=== PATIENT | female | born 1960 | race Caucasian/White ===

== ENCOUNTER 2023-01-02 14:46 | Emergency (ER) | payer BC, SELFPAY ==
[2023-01-02 14:48] VITALS: BP 155/89; PULSE 100; RESP 16; TEMP 36.7; O2SAT 100; BMI 28.3
--- NOTE | 2023-01-02 15:59 | EKG12_ITS ---
Test Reason : chest pressure Blood Pressure : / mmHG Vent. Rate : 090 BPM Atrial Rate : 090 BPM P-R Int : 162 ms QRS Dur : 084 ms QT Int : 372 ms P-R-T Axes : 056 021 041 degrees QTc Int : 455 ms Normal sinus rhythm Possible Left atrial enlargement Borderline ECG Confirmed by NIK GIBSON, CAITLYN ([id number]), editor department EDMOND MANN ([id number]) on 01/03/2023 10:09:14 AM Referred By: Confirmed By:CAITLYN ZARAGOZA MD
--- NOTE | 2023-01-02 16:10 | RAD_ITS ---
INDICATION: Pressure chest EXAMINATION/TECHNIQUE: X-RAY - XR Chest 1 View COMPARISON: None FINDINGS: LINES/DEVICES: None. LUNGS: No consolidation, edema or effusion. No pneumothorax. Calcified nodularity projects over the right midlung. MEDIASTINUM AND CARDIOVASCULAR STRUCTURES: Cardiac silhouette not enlarged. Central airways and mediastinal contour are unremarkable. BONES AND SOFT TISSUES: Right mastectomy and axillary clips. RAD/Chest 1 View (Portable) IMPRESSION: No radiographic evidence of acute cardiopulmonary disease. Electronically Signed: Matty Jackson MD at 16:24 EDT ,
[2023-01-02 16:12] LABS: Absolute Lymphocyte Count 1.89 X10^3/uL (0.83-4.51); Absolute Neutrophil Count 4.7 X10^3/uL (2.0-7.7); Basophil# 0.05 X10^3/uL; Basophil% 0.7 % (0-1); Eosinophil# 0.18 X10^3/uL; Eosinophils% 2.5 % (0-5); Hematocrit 42.4 % (37-47); Hemoglobin 13.8 g/dL (12.0-15.0); Lymphocyte # 1.89 X10^3/ul (0.83-4.51); Lymphocyte % 26.2 % (19-41); Mean Corp Hgb Conc 32.5 g/dL (32-36); Mean Corpuscular Hgb 30.8 pg (27.0-32.0); Mean Corpuscular Volume 94.6 fL (81-99); Monocyte# 0.42 X10^3/uL; Monocyte% 5.8 % (0-10); NRBC Flagged by Analyzer 0 % (0-5); Neutrophil # 4.66 X10^3/uL (2.7-7.7); Neutrophil % 64.7 % (47-70); Platelet Count 274 K/mm3 (150-450); RBC Distribution Width CV 11.1 % (11.6-14.6); RBC Distribution Width SD 38.7 fl (35.1-43.9); Red Blood Count 4.48 M/mm3 (4.2-5.4); White Blood Count 7.2 K/mm3 (4.4-11.0)
[2023-01-02 16:46] LABS: AST(SGOT) 10 U/L (15-37); Alanine Aminotransfer ALT/SGPT 20 U/L (13-56); Albumin, Serum 3.9 g/dL (3.2-5.0); Alkaline Phosphatase 79 U/L (45-117); Anion Gap 6 (5-15); BUN 11 mg/dL (7-18); BUN/Creat Ratio 13.6 RATIO (10-20); Chloride 103 mmol/L (98-107); Creatinine, Serum 0.81 mg/dL (0.55-1.02); EST Glomerular Filtration Rate 77 mL/min (>60); Est Glom Filt Rate - Afr Amer 93 mL/min (>60); Estimated Creatinine Clearance 69.14 ml/min; Globulin 3.9 g/dL (2.2-4.2); Glucose 103 mg/dL (74-106); Potassium 4.1 mmol/L (3.5-5.1); Protein, Total 7.8 g/dL (6.4-8.2); Sodium Level 138 mmol/L (136-145); Troponin-I HS (w/2H Reflex) 4 pg/mL (3.0-54.0)
[2023-01-02 17:01] LABS: Bacteria 0 SEEN /hpf (None Seen); Mucous, Urine 0 SEEN /hpf (<or=2+); Red Blood Cells-Urine 0 SEEN /hpf (0-5); Squamous Epithelial Cells - UA 0 SEEN /hpf (5-10); White Blood Cells 0 SEEN /hpf (0-5)
[2023-01-02 17:03] LABS: Color, Urine Yellow (Yellow); Glucose, Dipstick Normal (Normal); Ketone-Dipstick Negative (Negative); Leukocyte Esterase-Dipstick Negative /ul (Negative); Nitrite-Dipstick Negative (Negative); Occult Blood-Urine Negative /ul (Negative); Protein-Dipstick Negative (Negative); Urine Bilirubin Dipstick Negative (Negative); Urine Clarity Clear (Clear); Urine Urobilinogen Normal (Normal)
--- NOTE | 2023-01-02 17:54 | EDS_ITS ---
HPI History of Present Illness Chief Complaint: Abd Pain Detail of Chief Complaint: Patient reports left upper quadrant pain and chest discomfort. Informant: patient, spouse/S.O. and other (Primary care provider did call and speak with Dr. Woodson.) Onset/Context/Timing Onset: Days Context: Sudden Onset (HPI for further detail) Timing: Intermittent Quality: Pressure heaviness chest and sharp discomfort left upper quadrant left flan Location: Documented under quality Current Severity: Mild Maximum Severity: Moderate Worsened by: Exertion increases the chest pain and movement increases the side/flank christine Relieved by: Chest pain nothing presently abdominal remaining still Associated Symptoms Associated Symptoms: Radiation to both shoulders, dyspnea on exertion Narrative Narrative: Patient is a 62-year-old woman with history of hypertension. She is a non- smoker. There is no family history of cardiac disease at a young age. She has no history of VTE. She has no risk factors for VTE. She denies leg pain, swelling discoloration. She denies fever, chills night sweats. She denies headache, visual, ocular auditory symptoms. She denies upper respiratory infectious symptoms. She does complain of discomfort in her chest described as a full heavy sensation with radiation to both shoulders. She does report dyspnea going up steps in the past several days. She did have episode of nausea and shortness of breath with mild diaphoresis last evening. Pain lasted 2 hours last evening. Pain has been constant since this morning. She has no known history of GERD, hiatal hernia or peptic ulcer disease. She denies change in color, consistency or caliber of her stool. She denies dysuria, frequency, urgency or hematuria. She denies history of renal ureterolithiasis. There is no history of trauma. She had a colonoscopy several years ago. To her knowledge there was no significant abnormality. Prior similar symptoms: No Recent Illness/Hospitalization: No PFSH PFSH Home Medications amlodipine 10 mg tablet mg 01/02/23 [History Last Taken 01/02/23] Allergy/AdvReac Type Severity Reaction Status Date / Time lisinopril AdvReac COUGH Verified 01/02/23 14:47 Social History (Updated 01/02/23 @ 17:[address] Flako Sharpe MD) household members: spouse Smoking Status: Never smoker substance use type: does not use ROS ROS ED Constitutional Constitutional ED: Denies chills, fever(s), subjective, sweats or weight loss Eyes Eyes: Denies blurry vision or change in vision ENT ENT ED: Denies ear pain, rhinorrhea or sore throat Cardiovascular Cardiovascular: Reports chest pain; Denies orthopnea, palpitations, paroxysmal nocturnal dyspnea or racing heartbeat Respiratory/Chest Respiratory/Chest: Reports dyspnea on exertion; Denies cough, dyspnea, orthopnea or paroxysmal nocturnal dyspnea Gastrointestinal Gastrointestinal: Reports abdominal pain and nausea; Denies constipation, diarrhea, melena or vomiting Genitourinary Genitourinary ED: Denies dysuria, hematuria or urinary frequency Musculoskeletal Musculoskeletal: Reports other Details: Left flank pain, ; Denies arthralgias, back pain, myalgias or neck pain Integumentary Denies rash Neurologic Neurologic: Denies paresthesias or weakness Endocrine Endocrinology: Denies cold intolerance or heat intolerance Hematologic/Lymphatic Hematologic/Lymphatic: Reports systems reviewed and no addt'l complaints, except as documented EXAM Physical Exam Const Vital Signs: 01/02/23 14:48 01/02/23 18:01 Temperature 98.1 F Temperature Source Temporal Pulse Rate 100 100 Respiratory Rate 16 15 Blood Pressure 155/89 H Blood Pressure Mean 111 Pulse Ox 100 98 Oxygen Delivery Method Room Air Room Air Positive well nourished and well developed General Appearance ED: well developed and NAD; Negative for cyanotic, diaphoretic or pallor HEENT Reports moist mucous membranes HEENT Narrative: Head is atraumatic normocephalic. Ears normal. TMs normal. Nares patent. Posterior pharynx erythema exam. Uvula is midline. Eyes PERRL and EOMs intact bilaterally General Eye ED: Negative for pale conjunctiva or scleral icterus Neck no lymphadenopathy, supple and no JVD Chest Wall inspection of chest normal and palpation of chest normal Chest Narrative: There is no reproducible chest pain. Resp normal respiratory effort and clear to auscultation bilaterally Effort and Inspection: Negative for pain with movement Cardio regular rate, regular rhythm, S1 normal heart sound, S2 normal heart sound and no murmurs GI normal to inspection, nondistended, normoactive bowel sounds and non-distended; Negative for non-tender, hepatosplenomegaly or no masses GI Narrative: There is pain outpatient left upper quadrant left costal margin midclavicular to anterior axillary line. Auscultation: normoactive bowel sounds Palpation: soft and tender LUQ Back/Spine no CVA tenderness Cervical Spine: Negative for cervical spine tenderness Thoracic Spine / Upper Back: Negative for thoracic spinal tenderness Lumbar Spine / Lower Back: Negative for lumbar spinal tenderness Extremity normal to inspection Extremity Narrative: Patient's legs are not asymmetric. There is no discoloration. There is no swelling. There is no leg vein distention. There is no palpable cords test on the distribution deep venous system. General Extremety ED: Negative for edema or tenderness General Extremity: Negative for edema Neuro oriented x3, CN's II-XII intact bilaterally and no sensory deficits noted Sensorium / Orientation: alert Psych mental status grossly normal Skin no rashes or lesions noted, no wounds and skin turgor normal General Skin Exam: Negative for jaundice or pallor MDM MDM MDM Narrative Medical decision making narrative: Patient complaining of chest discomfort Holcomb exertion radiating to both sh oulders which increases odds ratio of cardiac disease 90-1. Cardiac work-up was undertaken which include EKG troponin with 2-hour troponin. With left upper quadrant pain differential would include lower lobe pneumonia, renal disease, there is no evidence of bladder megaly on exam. There is no concern for pancreatitis since patient does not drink. Furthermore she has no intolerance to greasy or fried foods to suggest gallstone pancreatitis. Lab Data Attestation: I reviewed the patient's lab results. Lab results narrative: CBC is normal. Comprehensive metabolic panel is normal. UA is negative. Labs: Laboratory Results - last 24 hr 01/02/23 01/02/23 16:00 16:40 WBC 7.2 RBC 4.48 Hgb 13.8 Hct 42.4 MCV 94.6 MCH 30.8 MCHC 32.5 RDW Std Deviation 38.7 RDW Coeff of Lucina 11.1 L Plt Count 274 MPV 9.0 Immature Gran % (Auto) 0.100 Neut % (Auto) 64.7 Lymph % (Auto) 26.2 [place] % (Auto) 5.8 Eos % (Auto) 2.5 Baso % (Auto) 0.7 Absolute Neuts (auto) 4.7 Absolute Lymphs (auto) 1.89 Nucleated RBC % 0 Sodium 138 Potassium 4.1 Chloride 103 Carbon Dioxide 29.0 Anion Gap 6 BUN 11 Creatinine 0.81 Estim Creat Clear Calc 69.14 Est GFR (MDRD) Af Amer 93 Est GFR (MDRD) Non-Af 77 BUN/Creatinine Ratio 13.6 Glucose 103 Calcium 9.0 Total Bilirubin 0.40 AST 10 L ALT 20 Alkaline Phosphatase 79 Troponin I High Sens 4 Total Protein 7.8 Albumin 3.9 Globulin 3.9 Albumin/Globulin Ratio 1.0 Urine Color Yellow Urine Clarity Clear Urine pH 7.0 Ur Specific [place] 1.010 Urine Protein Negative Urine Glucose (UA) Normal Urine Ketones Negative Urine Occult Blood Negative Urine Nitrite Negative Urine Bilirubin Negative Urine Urobilinogen Normal Ur Leukocyte Esterase Negative Urine RBC 0 SEEN Urine WBC 0 SEEN Ur Squamous Epith Cells 0 SEEN Urine Bacteria 0 SEEN Urine Mucus 0 SEEN Radiography Chest X-Ray - ED: Read by ED Physician (Chest x-ray reveals surgical clips right axilla. There is chronic changes noted. There is no acute abnormality noted. Cardiac silhouette size is normal. Perihilar region normal. Osseous structures are unremarkable. This is not fully reviewed and interpreted by me.) Diagnostic Testing: Clinical Impression(s) from Imaging Studies Chest X-Ray 01/02/23 16:10 IMPRESSION: No radiographic evidence of acute cardiopulmonary disease. Electronically Signed: Matty Jackson MD at 16:24 EDT , Abdomen CT 01/02/23 20:00 IMPRESSION: Prominent bilateral gonadal veins may be seen in pelvic congestion syndrome. Normal appearance of the descending and sigmoid colon. No renal calculus. No acute abnormal finding the abdomen or pelvis. Electronically Signed: Matty Jackson MD at 20:45 EDT , EKG Initial EKG: Attestation: I personally reviewed and interpreted this EKG as follows: Interpretation: Sinus Rhythm (Rate is 90. The EKG is normal. AR interval is 162 ms. Cures duration 84 ms. QT duration 3 and 72 ms. [place] is normal. Computer is reading possible left atrial enlargement.) Treatment and Re-Evaluation :: Was informed of her laboratory results and CAT scan results. She has no symptoms that are suggestive or consistent with pelvic congestion syndrome. She was instructed to follow-up with her conditioner tumbler. She was informed the cause of the pain in the left upper quadrant unknown. She was told the cause of her chest pressure is unknown. Discharge Plan Triage Chief Complaint: Abd Pain ED Provider: Flako Sharpe Dx/Rx/DC Orders Clinical Impression: Chest pain, Hypertension, Left upper quadrant abdominal pain, Female pelvic congestion syndrome Instructions: Pelvic Congestion Syndrome, ED Abdominal Pain Unkn Cause Fem, ED Chest Pain, Noncardiac Prescriptions: No Action amlodipine 10 mg tablet Patient Comments: TAKE 1 TABLET BY MOUTH EVERY DAY Primary Care Provider: Moe Jackson Referrals: Moe Jackson, [Primary Care Provider] - 5-7 Days Activity Restrictions/Additional Instructions: Since you are CAT scan was interpreted as pelvic congestion syndrome you were given information and recommend you follow-up with your conditioner tumbler. Disposition Disposition: Home, Self Care
[2023-01-02 18:01] VITALS: PULSE 100; RESP 15; O2SAT 98
--- NOTE | 2023-01-02 20:00 | CT_ITS ---
CT/Abdomen/Pel W ORAL Cont Only IMPRESSION: Prominent bilateral gonadal veins may be seen in pelvic congestion syndrome. Normal appearance of the descending and sigmoid colon. No renal calculus. No acute abnormal finding the abdomen or pelvis. Electronically Signed: Matty Jackson MD at 20:45 EDT ,
[2023-01-02 21:21] VITALS: PULSE 69; RESP 17; O2SAT 98
== END 2023-01-02 21:32 | disposition home or self-care (01) ==
PROVIDERS: Emergency Provider Emergency Medicine; PCP Student in an Organized Health Care Education/Training Program; Visit Provider Emergency Medicine
DX: R07.9 Chest pain, unspecified (principal); R10.12 Left upper quadrant pain; I10 Essential (primary) hypertension; N94.89 Other specified conditions associated with female genital organs and menstrual cycle; R06.09 Other forms of dyspnea
CPT/HCPCS: 71045; 74176; 80048; 80053; 81001; 84484; 85025; 93005; 99284; A4216